=== PATIENT | female | born 1985 | race Hispanic/Latino ===

== ENCOUNTER 2018-11-07 13:29 | Emergency (ER) | payer OTHER ==
[2018-11-07 13:29] VITALS: BMI 39.4
--- NOTE | 2018-11-07 14:31 | ED PDOC ---
Arrival/HPI - History of Present Illness Narrative History of Present Illness (Text): Patient is 33 yo female with PMH of ovarian cancer (BRCA 1 and 2 positive) present today c/o palpitations since this morning. Patient endorses having heartburn during the week and she drank a whole [employer]UMS's bottle since yesterday. This morning she was feeling better and drank 1 sip coffee and started with palpitations and sweats. She reports it is the first time that this happen to her. Otherwise she denies fever, chills, chest pain, sob, dizziness, nausea, vomiting, abd pain. NO urinary sx or changes in BM. PCP: none provided <Qamar Lutz - Last Filed: 11/07/18 16:32> <Janet Muhammad - Last Filed: 11/09/18 07:33> - General Chief Complaint: Palpitations Time Seen by Provider: 11/07/18 13:58 Past Medical History - Provider Review Nursing Documentation Reviewed: Yes - Hematological/Oncological Hx Cancer: Yes (Ovarian (BRCA 1&2)) <Qamar Lutz - Last Filed: 11/07/18 16:32> - Provider Review Nursing Documentation Reviewed: Yes - Travel History Have you recently traveled outside [place] w/in the past 3 mons?: No - Past History Past History: No Previous - Past Surgical History Past Surgical History: No Previous <Janet Muhammad - Last Filed: 11/09/18 07:33> Family/Social History Family/Social History: Neoplasm/Cancer (Mother from ovarian cancer) Smoking Status: Never Smoked Hx Alcohol Use: No Hx Substance Use: No <Qamar Lutz - Last Filed: 11/07/18 16:32> - Physician Review Nursing Documentation Reviewed: Yes Family/Social History: No Known Family HX <Janet Muhammad A - Last Filed: 11/09/18 07:33> Allergies/Home Meds <Qamar Lutz - Last Filed: 11/07/18 16:32> <Janet Muhammad - Last Filed: 11/09/18 07:33> Allergies/Adverse Reactions: Allergies No Known Allergies Allergy (Unverified 11/07/18 13:35) Review of Systems - Review of Systems Constitutional: absent: Fatigue, Fevers Respiratory: absent: SOB, Cough, Wheezing Cardiovascular: Palpitations. absent: Chest Pain, GATES Gastrointestinal: absent: Abdominal Pain, Nausea, Vomiting Neurological: absent: Headache, Dizziness <Qamar Lutz - Last Filed: 11/07/18 16:32> - Physician Review All systems were reviewed & negative as marked: Yes <Janet Muhammad - Last Filed: 11/09/18 07:33> Physical Exam Vital Signs Reviewed: Yes Vital Signs Temp Pulse Resp BP Pulse Ox 11/07/18 13:39 99.6 F 112 H 18 128/81 99 Appearance: Positive for: Well-Appearing, Comfortable - Systems Exam Head: Present: Normocephalic Pupils: Present: PERRL Extroacular Muscles: Present: EOMI Ears: Present: Normal, NORMAL TM Neck: Present: Normal Range of Motion Respiratory/Chest: Present: Clear to Auscultation, Good Air Exchange Cardiovascular: Present: Regular Rate and Rhythm, Normal S1, S2, Tachycardic. No: Murmurs Abdomen: Present: Normal Bowel Sounds. No: Tenderness, Distention Lower Extremity: No: Edema Skin: Present: Warm, Dry, Normal Color. No: Rashes Psychiatric: Present: Alert, Oriented x 3 <Qamar Lutz - Last Filed: 11/07/18 16:32> Vital Signs Temp Pulse Resp BP Pulse Ox 11/07/18 16:40 97.5 F L 87 19 118/78 98 11/07/18 15:50 97 F L 90 20 120/78 98 11/07/18 13:39 99.6 F 112 H 18 128/81 99 Temperature: Afebrile <Janet Muhammad - Last Filed: 11/09/18 07:33> Medical Decision Making ED Course and Treatment: Initial plan: - cbc - cmp - d-dimer - TSH - troponin - ekg Patient feeling better, no tachycardia on monitor Labs wnl Troponin and D dimer wnl, all labs results discussed in detail with pt will discharge to home. - EKG Interpretation Interpreted by ED Physician: Yes (Sinus tachycardia, no acute changes) <LutzJustoyasmeen - Last Filed: 11/07/18 16:32> - Lab Interpretations Lab Results: D-Dimer, Quantitative < 200 ng/mlDDU (0-230) 11/07/18 14:45 Troponin I 0.0270 ng/mL (0.00-0.120) 11/07/18 14:45 Total Bilirubin 0.4 mg/dl (0.2-1.3) 11/07/18 14:45 AST 39 U/L (14-36) H 11/07/18 14:45 ALT 27 U/L (9-52) 11/07/18 14:45 Alkaline Phosphatase 57 U/L (38-126) 11/07/18 14:45 Total Protein 7.6 G/DL (6.3-8.2) 11/07/18 14:45 Albumin 4.3 g/dL (3.5-5.0) 11/07/18 14:45 Globulin 3.3 gm/dL (2.2-3.9) 11/07/18 14:45 Albumin/Globulin Ratio 1.3 (1.0-2.1) 11/07/18 14:45 - Medication Orders Current Medication Orders: Discontinued Medications Acetaminophen (Tylenol 325mg Tab) 650 mg PO ONCE ONE Stop: 11/07/18 16:03 Last Admin: 11/07/18 16:33 Dose: 650 mg <Janet Muhammad - Last Filed: 11/09/18 07:33> Disposition/Present on Arrival - Present on Arrival Any Indicators Present on Arrival: No - Disposition Have Diagnosis and Disposition been Completed?: Yes Disposition Time: 16:11 Patient Plan: Discharge <Qamar Lutz - Last Filed: 11/07/18 16:32> <Janet Muhammad - Last Filed: 11/09/18 07:33> - Disposition Diagnosis: Palpitations Disposition: HOME/ ROUTINE Condition: GOOD Discharge Instructions (ExitCare): Palpitations (DC) Print Language: SOUTH AFRICAN Additional Instructions: Return to ED if worsening or new sx decrease caffeine intake f/u with PCP next week Referred to [facility] Prescriptions: Acetaminophen [Tylenol] 650 mg PO Q6H 20 Days #30 capsule Referrals: [facility] [Outside] Forms: [facility] ([place]) Supervising Attending Note - Supervising Attending Note The Documented history was done by the: Physician Siebel Developer, Attending Physician The documented physical exam was done by the: Physician Siebel Developer, Attending Physician The documented procedures were done by the: Physician Siebel Developer, Attending Physician - Attestation: I have personally seen and examined this patient.: Yes I have fully participated in the care of the patient.: Yes I have reviewed all pertinent clinical information, including history, physical exam and plan: Yes <Janet Muhammad - Last Filed: 11/09/18 07:33>
[2018-11-07 15:05] LABS: BASO % 0.4 % (0.0-2.0); EOS # 0.1 K/uL (0.0-0.7); EOS % 0.7 % (0.0-4.0); HEMOGLOBIN 13.1 g/dL (12.0-16.0); LYMPH # 2.4 K/uL (1.0-4.3); LYMPH % 27.4 % (20.0-40.0); MEAN CELL VOLUME 88.7 fl (81.0-99.0); MEAN CORPUSCULAR HEMOGLOBIN 29.8 pg (27.0-31.0); MEAN CORPUSCULAR HGB CONC 33.5 g/dL (33.0-37.0); MEAN PLATELET VOLUME 8.1 fl (7.2-11.7); MONO # 0.5 K/uL (0.0-0.8); MONO % 5.6 % (0.0-10.0); NEUT # 5.9 K/uL (1.8-7.0); NEUT % 65.9 % (50.0-75.0); RBC 4.4 Mil/uL (3.80-5.20); RED CELL DISTRIBUTION WIDTH 13.6 % (11.5-14.5); WHITE BLOOD COUNT 8.9 K/uL (4.8-10.8)
[2018-11-07 15:10] LABS: ALB/GLOB RATIO 1.3 (1.0-2.1); ALBUMIN 4.3 g/dL (3.5-5.0); BLOOD UREA NITROGEN 13 mg/dl (7-17); GFR NON-AFRICAN AMERICAN > 60
[2018-11-07 15:16] LABS: ALT/SGPT 27 U/L (9-52); AST/SGOT 39 U/L (14-36)
[2018-11-07 16:37] VITALS: O2SAT 98
[2018-11-07 16:41] VITALS: BP 118/78; PULSE 87; RESP 19; TEMP 97.5
--- NOTE | 2018-11-07 22:27 | CARD ---
APPROVED REPORT Date of service: 11/07/2018 EKG Measurement Heart [id number] <Conclusion> Sinus tachycardia Otherwise normal ECG
== END 2018-11-07 16:41 | disposition home or self-care (01) ==
LOC: H.ER 13:29
DX: R00.2 Palpitations (principal); Z85.43 Personal history of malignant neoplasm of ovary